=== PATIENT | female | born 1955 | race Hispanic/Latino ===

== ENCOUNTER 2016-07-24 16:46 | Emergency (ER) | payer OTHER, MEDICARE ==
[~2016-07-24] VITALS: Ht 144.8 cm; Wt 58.1 kg
[~2016-07-24 16:46] MED LIST: ALEVE220 MG PO; BENADRYL25 MG PO; EPIPEN 2-P0.3 MG/0.3 IM; FISH OIL CONCEN1 SGL PO; HALDOL 0.5MG T0.5 MG; HALOPERIDOL2 MG PO; LITHIUM CARB300 MG PO; MULTI VITAMINS1 TAB PO; PEPCID20 M1 PO; POLYTRIM O200 GTT/BO OP; PREDNISONE 20MG20 MG PO; PREDNISONE10 M2 PO; PROPRANOLOL HCL10 MG PO; TYLENOL500 MG PO
[2016-07-24 16:48] VITALS: BP 122/79
== END 2016-07-24 17:11 | disposition admitted as inpatient to this hospital (09) ==
LOC: ERH 16:46
DX: L29.9 Pruritus, unspecified (principal)

== ENCOUNTER 2016-08-15 20:23 | Emergency (ER) | payer OTHER, MEDICARE ==
[~2016-08-15] VITALS: Ht 144.8 cm; Wt 58.1 kg
[2016-08-15 20:29] VITALS: BP 119/75
== END 2016-08-15 22:01 | disposition admitted as inpatient to this hospital (09) ==
LOC: ERH 20:23
DX: L50.9 Urticaria, unspecified (principal)

== ENCOUNTER 2016-09-21 19:16 | Emergency (ER) | payer OTHER, MEDICARE ==
[~2016-09-21] VITALS: Ht 147.3 cm; Wt 58.1 kg
--- NOTE | 2016-09-21 20:11 | ED SKIN/ALLERGY COMPLAINT ---
History of Present Illness General Chief Complaint: Allergy Symptoms Stated Complaint: "I HAVE HAIVES EVERYWHERE" Source: patient Exam Limitations: no limitations Vital Signs & Intake/Output Vital Signs & Intake/Output Vital Signs Date Time Temp Pulse Resp B/P Pulse O2 O2 Flow FiO2 Ox Delivery Rate 09/22 1923 96.6 78 20 133/72 99 Room Air Room Air Allergies Coded Allergies: carbamazepine (UNKNOWN 09/11/15) Reconcile Medications Acetaminophen (Tylenol) 500 MG TAB 2 TAB PO PRN PAIN (Reported) Diphenhydramine HCl (Benadryl) 25 MG CAPSULE 1 CAP PO BID PRN ITCHING Epinephrine (Epipen 2-Man) 0.3 MG/0.3 ML AUTO.INJCT 1 INJ IM ONCE PRN ANAPHYLAXIS Famotidine (Pepcid) 20 MG TABLET 1 TAB PO DAILY ALLERGIC REACTION Haloperidol 2 MG TAB 1 TAB PO DAILY MENTAL HEALTH (Reported) Haloperidol (Haldol 0.5MG Tablet) (Unknown Strength) TAB (Unknown Dose) UNKNOWN (Reported) [place] Carbonate ([place] Carbonate ER) [address] 1 TAB PO DAILY MENTAL HEALTH (Reported) Multivitamin (One Daily Multivitamin) 1 TAB TAB 1 TAB PO DAILY SUPPLEMENT ( Reported) Naproxen Sodium (Aleve) 220 MG TAB 1 TAB PO PRN PAIN (Reported) OMEGA-3 FATTY ACIDS (Fish Oil Concentrate) 1 SGL SGL 1 SGL PO DAILY SUPPLEMENT (Reported) Polytrim (Polytrim Eye Drops) 200 GTT/BOT GTT 1 DROP OP 4 TIMES/DAY CONJUNCTIVITIS Prednisone (Deltasone) 20 MG TABLET 1 TAB PO TID ALLERGIC REACTION Prednisone 20 MG TAB 2 TAB PO DAILY ALLERGIC REACTION Prednisone 10 MG TABLET 1 TAB PO BID ALLERGIC REACTION Propranolol Hydrochloride (Propranolol HCl) 10 MG TAB 1 TAB PO DAILY SHAKING (Reported) Triage Note: PT TO ED WITH C/O RASH TO FACE, NECK AFTER EATING TUNA FISH. Triage Nurses Notes Reviewed? yes Onset: Abrupt Duration: hour(s): (2), improving Timing: recent history Severity: moderate Location: generalized Possible Factors: no cause identified No Modifying Factors: none HPI: 61-year-old female comes into emergency room with complaints of generalized rash is been going on for the past 2 hours. Patient reports that she ate fish earlier today around noon. She has a history of previous allergy to tunafish but she wants to eat and anyways. Patient reports that she has gotten rashes in the past. Denies any tongue swelling or shortness of breath. Nothing seems to make the symptoms better or worse. Patient was medicated with prednisone and Pepcid and Benadryl in triage and her symptoms have improved since she has been brought back to the room about 45 minutes ago. (CHERYL SINGH) Past History Travel History Traveled to [place] past 21 day No Medical History Any Pertinent Medical History? 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 No (CHERYL SINGH) Review of Systems Review of Systems Constitutional: Reports: no symptoms. EENTM: Reports: no symptoms. Respiratory: Reports: no symptoms. Cardiovascular: Reports: no symptoms. GI: Reports: no symptoms. Genitourinary: Reports: no symptoms. Musculoskeletal: Reports: no symptoms. Skin: Reports: see HPI. Neurological/Psychological: Reports: no symptoms. Hematologic/Endocrine: Reports: no symptoms. Immunologic/Allergic: Reports: no symptoms. All Other Systems: Reviewed and Negative (CHERYL SINGH) Physical Exam Physical Exam General Appearance: well developed/nourished, mild distress Head: atraumatic Eyes: Bilateral: normal appearance. Ears, Nose, Throat: normal ENT inspection, hearing grossly normal Neck: normal inspection Respiratory: no respiratory distress Cardiovascular: regular rate/rhythm Back: normal inspection Extremities: normal inspection, normal range of motion, no edema Neurologic/Psych: awake, alert, oriented x 3, normal mood/affect Skin: intact Skin Problem Location: generalized Skin Problem Character: papules, urticarial Lymphatic: no anterior cervical tracy (CHERYL SINGH) Progress Differential Diagnosis: abscess/cellulitis, allergic reaction, anaphylaxis, contact dermatitis, drug reaction, erythema multiforme, lyme disease Plan of Care: 09/21/2016 8:29:01 PM Patient clinically looks well. Patient is nontoxic-appearing. Patient is in no apparent distress. Patient resting comfortably in room. Patient was told to stop eating fish if she is allergic to it. Patient has no signs of anaphylaxis and clinically looks well upon evaluation. Patient told to take Benadryl at home and given a prescription for prednisone. (CHERYL SINGH) Departure Departure Disposition: HOME OR SELF CARE Condition: Stable Clinical Impression Primary Impression: Allergic reaction Referrals: ADOLPH SCHNEIDER MD (PCP/Family) Additional Instructions: Take prednisone as prescribed. Take Benadryl 50 mg 3 times a day at home for the next 24 hours. Return if any other concerns worsening symptoms. Please go over all results of today's visit with your primary care doctor. Contact your primary care doctor to let them know you were here in the emergency room. There may be nonspecific findings which may not be related to your visit today here in the emergency room but may require further evaluation and chronic monitoring by your primary care doctor. If you had a laceration today the chance of foreign body always remains. You should follow-up with your primary care doctor for recheck in 3-5 days for a wound check. If you had an x-ray done there is a chance that a fracture could have been missed on initial read and you should follow-up with your primary care doctor for repeat x-rays if symptoms persist. If your blood pressure was elevated here in the emergency room please have rechecked by her primary care doctor within the next 48 hours by your primary care doctor. If you were prescribed a narcotic here in the emergency room or any type of controlled substances you're not allowed to drive while taking this medication or operate any type of heavy machinery. Narcotics can make you feel lightheaded dizziness nausea and can cause constipation. You may need to picker tender a stool softener. Thank you for choosing [facility] emergency room. Please return to the emergency room immediately if you have any other concerns worsening of symptoms. Departure Forms: Customer Survey General Discharge Information Prescriptions: Current Visit Scripts Prednisone (Deltasone) 1 TAB PO TID #12 MG (CHERYL SINGH) PA/WORM RAISER Co-Sign Statement Statement: ED Attending supervision documentation- [] I saw and evaluated the patient. I have also reviewed all the pertinent lab results and diagnostic results. I agree with the findings and the plan of care as documented in the PA's/WORM RAISER's documentation. [X] I have reviewed the ED Record and agree with the PA's/WORM RAISER's documentation. [] Additions or exceptions (if any) to the PAs/WORM RAISER's note and plan are summarized below: [] (ROSENDO CEJA,MARCELLA)
[2016-09-21] MEDS ORDERED: DELTASONE20 MG PO (20:19)
[2016-09-21 20:37] VITALS: BP 142/80
== END 2016-09-21 20:37 ==
LOC: ERH 19:16
DX: L27.2 Dermatitis due to ingested food (principal)

== ENCOUNTER 2016-11-14 16:16 | Emergency (ER) | payer OTHER, MEDICARE ==
[~2016-11-14] VITALS: Ht 144.8 cm; Wt 56.2 kg
[~2016-11-14 16:16] MED LIST changes: +DELTASONE20 MG PO
--- NOTE | 2016-11-14 18:06 | ED GENERAL ADULT ---
See Addendum History of Present Illness General Chief Complaint: General Adult Stated Complaint: HIVES Source: patient Exam Limitations: no limitations Vital Signs & Intake/Output Vital Signs & Intake/Output Vital Signs Date Time Temp Pulse Resp B/P B/P Pulse O2 O2 Flow FiO2 Mean Ox Delivery Rate 11/14 1833 98.7 70 18 120/70 98 Room Air ED Intake and Output 11/15 0000 11/14 1200 Intake Total 0 Output Total Balance 0 Intake, Oral 0 Patient 124 lb Weight Weight Reported by Patient Measurement Method Allergies Coded Allergies: carbamazepine (UNKNOWN 09/11/15) Reconcile Medications Cholecalciferol (Vitamin D3) (Vitamin D) 1,000 UNIT TABLET 3,000 UNITS SC DAILY SUPPLEMENT (Reported) Diphenhydramine HCl (Benadryl) 25 MG CAPSULE 2 CAP PO QPM SLEEP (Reported) Diphenhydramine HCl (Benadryl) 25 MG CAPSULE 1 CAP PO BID PRN ALLERGIC REACTION Epinephrine (Epipen 2-Man) 0.3 MG/0.3 ML AUTO.INJCT 1 INJ IM ONCE PRN ANAPHYLAXIS Famotidine 20 MG TABLET 1 TAB PO DAILY ALLERGIC REACTION Haloperidol 2 MG TABLET 1 TAB PO QPM MENTAL HEALTH (Reported) [place] Carbonate 300 MG CAPSULE 1 CAP PO QPM MENTAL HEALTH (Reported) Melatonin (Unknown Strength) TABLET (Unknown Dose) PO QPM SLEEP (Reported) Prednisone 10 MG TABLET 1 TAB PO BID ALLERGIC REACTION Triage Note: PT STATES SHE WAS HOME AND HAD SOME PEANUTS AND THEN SHE BROKE OUT IN [place]. PT STATES SHE ONLY KNEW SHE WAS ALLERGIC TO FISH. NO RESP. DISTRESS AT THIS TIME. 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 yes Onset: Abrupt Duration: hour(s): Timing: recent history HPI: 11/14/16 This is 61-year-old female presents to the emergency department complaining of hives. The patient states she has a history of prior episodes of urticaria in the past. She is not sure if it was secondary to the melatonin which she started yesterday. She's also been eating peanuts today. She says in the past she's been given prednisone and Benadryl for hives and the symptoms have resolved. She is requesting the same medications ; she has no difficulty breathing or chest pain. The onset of the symptoms were abrupt, the duration was just today, the severity was significant as her symptoms required her to come to the emergency department for care. Past History Travel History Traveled to [place] past 21 day No Medical History Any Pertinent Medical History? 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 No Review of Systems Review of Systems Constitutional: Denies: fever. EENTM: Denies: throat pain. Respiratory: Denies: short of breath. Cardiovascular: Denies: chest pain. GI: Denies: abdominal pain. Genitourinary: Reports: no symptoms. Musculoskeletal: Reports: no symptoms. Skin: Reports: rash. Neurological/Psychological: Reports: no symptoms. Hematologic/Endocrine: Reports: no symptoms. Immunologic/Allergic: Reports: no symptoms. Physical Exam Physical Exam General Appearance: well developed/nourished, alert, awake, anxious, mild distress Head: atraumatic, normal appearance Eyes: Bilateral: normal appearance, PERRL, EOMI. Ears, Nose, Throat: normal pharynx, normal ENT inspection, hearing grossly normal Neck: normal inspection, supple, full range of motion Respiratory: normal breath sounds, chest non-tender, no respiratory distress Cardiovascular: regular rate/rhythm Peripheral Pulses: 4+ radial (R), 4+ radial (L) Gastrointestinal: soft, non-tender Back: normal range of motion Extremities: normal inspection, normal range of motion, no edema Neurologic/Psych: no motor/sensory deficits, awake, alert, oriented x 3 Skin: intact, normal color Core Measures ACS in differential dx? No CVA/TIA Diagnosis: No Severe Sepsis Present: No Septic Shock Present: No Progress Differential Diagnoses I considered the following diagnoses in my evaluation of the patient: [ Anaphylaxis, allergic reaction, Lyme disease, adverse drug reaction, carcinoid tumor] Plan of Care: Follow-up with her doctor this week. Initial ED EKG: none Departure Departure Disposition: HOME OR SELF CARE Condition: Stable Clinical Impression Primary Impression: Allergic reaction Referrals: ADOLPH SCHNEIDER MD (PCP/Family) Departure Forms: Customer Survey General Discharge Information Prescriptions: Current Visit Scripts Famotidine 1 TAB PO DAILY #3 TAB Diphenhydramine HCl (Benadryl) 1 CAP PO BID PRN ALLERGIC REACTION #6 CAP Prednisone 1 TAB PO BID #6 TAB Critical Care Note Critical Care Note Critical Care Time: non-applicable Comments: 11/14/16 The patient was treated with prednisone and Benadryl in the ED. She will follow -up with her doctor this week or return to the emergency department if worse. She was instructed to DC the melatonin.
[2016-11-14] MEDS ORDERED: BENADRYL25 MG PO ×2 (18:17→18:28)
[2016-11-14] MEDS ORDERED: FAMOTIDINE20 M1 PO (18:17)
[2016-11-14] MEDS ORDERED: PREDNISONE10 M2 PO (18:17)
[2016-11-14] MEDS ORDERED: HALOPERIDOL2 M1 PO (18:25)
[2016-11-14] MEDS ORDERED: MELATONIN5 M7 PO (18:25)
[2016-11-14] MEDS ORDERED: VITAMIN D1000 UNIT SC (18:26)
[2016-11-14] MEDS ORDERED: LITHIUM CARBON300 M4 PO (18:26)
[2016-11-14 18:33] VITALS: BP 120/70
[2017-01-05] MEDS ORDERED: MEDROL4 M2 PO (20:35)
== END 2016-11-14 18:32 ==
LOC: ERH 16:16
DX: T78.40XA Allergy, unspecified, initial encounter (principal)